=== PATIENT | male | born 1970 | race American Indian/Alaskan Native ===

== ENCOUNTER 2019-08-05 20:43 | Emergency (ER) | payer BC ==
[2019-08-05 21:26] LABS: Basophils % (Auto) 0.8 % (0.0-1.8); Eosinophils # (Auto) 0.2 K/mm3 (0.0-0.4); Eosinophils % (Auto) 3.9 % (0.0-4.3); Hematocrit 43.4 % (35.5-45.6); Hemoglobin 14.6 gm/dl (11.8-15.2); Lymphocytes # (Auto) 2.8 K/mm3 (1.2-5.4); Lymphocytes % (Auto) 45.2 % (13.4-35.0); Mean Corpuscular HGB Conc 34 % (32-34); Mean Corpuscular Volume 90 fl (84-94); Monocytes # (Auto) 0.6 K/mm3 (0.0-0.8); Platelet Count 203 K/mm3 (140-440); Red Blood Count 4.85 M/mm3 (3.65-5.03); Red Cell Distribution Width 13.9 % (13.2-15.2)
[2019-08-05 21:45] LABS: BUN/Creatinine Ratio 12; Blood Urea Nitrogen 14 mg/dL (9-20); Calcium 9.3 mg/dL (8.4-10.2); Hemolysis Index 9
[2019-08-05 23:43] VITALS: BP 161/92
== END 2019-08-05 23:51 | disposition home or self-care (01) ==
LOC: ED 20:43
DX: R22.41 Localized swelling, mass and lump, right lower limb (principal); I10 Essential (primary) hypertension
CPT/HCPCS: 36415; 80048; 85025

== ENCOUNTER 2019-12-05 17:58 | Emergency (ER) | payer BC ==
[2019-12-05 18:27] VITALS: BP 163/88
[2019-12-05] MEDS ORDERED: ASPIRIN 325 MG TAB PO ONE (23:56)
--- NOTE | 2019-12-06 00:15 | Emergency Department Report ---
ED Chest Pain HPI - General Chief Complaint: Chest Pain Stated Complaint: CHEST PRESSURE Source: patient Mode of arrival: Ambulatory Limitations: No Limitations - History of Present Illness Initial Comments: Patient is a 49-year-old -[place] male with history of hypertension who presents to the ED with complaint of acute onset persistent intermittent left- sided chest pressure and discomfort intermittently for the last 12 hours. Patient states that the discomfort comes in terms of pressure and tightness and lasts about 15 seconds. Patient states that he had similar symptoms over 1 year ago and was extensively worked up including echocardiogram which was basically unremarkable with greater than 55% to 60% ejection fraction. Patient states that he came to the ED for evaluation when this symptoms got persistent. Patient denies shortness of breath, fever, chills, cough, dizziness, syncope, headache, diaphoresis, palpitation, numbness and tingling or weakness of upper extremities bilaterally, neck pain, jaw pain, abdominal pain, nausea and vomiting, traumatic injury or heavy lifting. MD Complaint: chest pain -: Sudden, hour(s) (12) Onset: awoke with symptoms Pain Location: substernal, left chest Pain Radiation: none Severity: mild Severity scale (0 -10): 3 Quality: tightness, pressure Improves With: nothing Worsens With: nothing re: denies: nausea, vomting, diaphoresis, dyspnea, sense of impending doom, other Other Symptoms: denies: cough, fever, syncope, rash, acid taste in mouth, leg swelling, palpitations, burping Treatments Prior to Arrival: none - Related Data On Oral Contraceptives: No Allergies Allergy/AdvReac Type Severity Reaction Status Date / Time No Known Allergies Allergy Unverified 08/05/19 21:11 Heart Score - HEART Score History: Slightly suspicious EKG: Normal Age: 45-65 Risk factors: 1-2 risk factors Troponin: < normal limit HEART Score: 2 - Critical Actions Critical Actions: 0-3 pts:0.9-1.7%risk of adverse cardiac event.Candidate for discharge ED Review of Systems ROS: Stated complaint: CHEST PRESSURE Other details as noted in HPI Constitutional: denies: chills, fever Eyes: denies: eye pain, eye discharge, vision change ENT: denies: ear pain, throat pain Respiratory: denies: cough, shortness of breath, SOB with exertion, SOB at rest, wheezing Cardiovascular: chest pain (Substernal left-sided chest pain and pressure). d enies: palpitations, dyspnea on exertion, orthopnea, syncope, paroxysmal nocturnal dyspnea Endocrine: no symptoms reported Gastrointestinal: denies: abdominal pain, nausea, vomiting, diarrhea Genitourinary: denies: urgency, dysuria Musculoskeletal: denies: back pain, joint swelling, arthralgia Skin: denies: rash, lesions Neurological: denies: headache, weakness, paresthesias Psychiatric: denies: anxiety, depression Hematological/Lymphatic: denies: easy bleeding, easy bruising ED Past Medical Hx - Past Medical History Previous Medical History?: Yes Hx Hypertension: Yes - Surgical History Past Surgical History?: No - Social History Smoking Status: Never Smoker Substance Use Type: None ED Physical Exam - General Limitations: No Limitations General appearance: alert, in no apparent distress - Head Head exam: Present: atraumatic, normocephalic, normal inspection - Eye Eye exam: Present: normal appearance, PERRL, EOMI Pupils: Present: normal accommodation - ENT ENT exam: Present: normal exam, normal orophraynx, mucous membranes moist, TM's normal bilaterally, normal external ear exam - Neck Neck exam: Present: normal inspection, full ROM - Respiratory Respiratory exam: Present: normal lung sounds bilaterally. Absent: respiratory distress, wheezes, rales, rhonchi, stridor, chest wall tenderness, accessory muscle use, decreased breath sounds - Cardiovascular Cardiovascular Exam: Present: regular rate, normal rhythm, normal heart sounds. Absent: systolic murmur, diastolic murmur, rubs, gallop - GI/Abdominal GI/Abdominal exam: Present: soft, normal bowel sounds. Absent: tenderness, guarding, rebound, hyperactive bowel sounds, hypoactive bowel sounds, organomegaly - Extremities Exam Extremities exam: Present: normal inspection, full ROM, normal capillary refill - Back Exam Back exam: Present: normal inspection, full ROM. Absent: tenderness, CVA tenderness (R), CVA tenderness (L), muscle spasm, paraspinal tenderness - Neurological Exam Neurological exam: Present: alert, oriented X3, CN II-XII intact, normal gait, reflexes normal - Psychiatric Psychiatric exam: Present: normal affect, normal mood - Skin Skin exam: Present: warm, dry, intact, normal color. Absent: rash ED Course Vital Signs 12/05/19 18:25 Temperature 99.0 F Pulse Rate 73 Respiratory 18 Rate Blood Pressure 163/88 [Right] O2 Sat by Pulse 100 Oximetry NACHO score - Nacho Score Age > 65: (0) No Aspirin use within the Past 7 Days: (0) No 3 or more CAD Risk Factors: (0) No 2 or more Angina events in past 24 hrs: (0) No Known CAD with more than 50% Stenosis: (0) No Elevated Cardiac Markers: (0) No ST Deviation Greater than 0.5mm: (0) No NACHO Score: 0 ED Medical Decision Making - Lab Data Result diagrams: 12/06/19 00:32 12/06/19 00:32 - EKG Data EKG shows normal: sinus rhythm Rate: normal - EKG Data When compared to previous EKG there are: no significant change Interpretation: normal EKG 12/06/19 03:44 The initial EKG shows normal sinus rhythm with a ventricular rate of 78 bpm and with LVH and ST elevation probably normal due to early repolarization pattern. - Radiology Data Radiology results: report reviewed, image reviewed Findings [address] [address] XRay Report Signed Patient: GURJIT FERRIS MR#: [id number] : 1970 Acct:[id number] Age/Sex: 49 / M ADM Date: 12/05/19 Loc: ED Attending Dr: Ordering Physician: TEODORA BRADFORD Date of Service: 12/05/19 Procedure(s): XR chest 1V ap Accession Number(s): [id number] cc: TEODORA BRADFORD Fluoro Time In Minutes: CHEST 1 VIEW INDICATION: Chest pain COMPARISON: None FINDINGS: Support devices: None Heart: Normal Lungs/Pleura: No acute pulmonary or pleural findings. Ill-defined opacity in the right lung is thought to be due to overlying soft tissues. IMPRESSION: 1. No convincing evidence of acute disease. Signer Name: Mor Null MD Signed: 12/06/2019 12:46 AM Workstation Name: [id number] Transcribed By: TM Dictated By: Mor Null MD Electronically Authenticated By: Mor Null MD Signed Date/Time: 12/06/1945 DD/ TD/TT: - Medical Decision Making This is a 49-year-old -[place] male with history of hypertension who presents to the ED with complaint of acute onset persistent intermittent left-si ded chest pressure and discomfort intermittently for the last 12 hours. Patient states that the discomfort comes in terms of pressure and tightness and lasts about 15 seconds. Patient states that he had similar symptoms over 1 year ago and was extensively worked up including echocardiogram which was basically unremarkable with greater than 55% to 60% ejection fraction. Patient states that he came to the ED for evaluation when this symptoms got persistent. In the ED, patient is alert and oriented x3 and is not in distress. The initial EKG shows normal sinus rhythm with a ventricular rate of 78 bpm and with LVH and ST elevation probably normal due to early repolarization pattern. The repeat EKG with a second troponin level showed ventricular rate of 60 bpm and probable LVH. Patient was treated in the ED with aspirin 325 mg p.o. x1. The lab test results were reviewed and are all nonactionable including initial and repeat troponin levels. Chest x-ray shows no acute cardiopulmonary abnormalities or pneumonitis. Patient had a normal echocardiogram about a year ago after being worked up thoroughly at another hospital, and has not had any similar symptoms. Patient is currently on antihypertensive medications including lisinopril HCTZ combination and a beta-palma. The patient's heart score is 2 and patient is PERC negative per Wells criteria. Patient was discharged home and given a referral to senior financial reporting analyst on-call Dr. Shi for further evaluation and possible cardiac stress test in outpatient. Patient was advised to contact us Dr. Shi's office first thing in the morning on December 06, 2019 to schedule a follow-up appointment with Dr. Tyson. Patient was advised to return to the ED immediately if symptoms get worse. Patient was otherwise advised to follow-up also with his primary care physician in 5 to 7 days for reevaluation. - Differential Diagnosis ACS; PE; Dissection; Pneumonia; Anxiety; Muscle strain; GERD; Costochondrit Critical Care Time: Yes (35 MIN) Critical care time in (mins) excluding proc time.: 35 Critical care attestation.: If time is entered above; I have spent that time in minutes in the direct care of this critically ill patient, excluding procedure time. ED Disposition Clinical Impression: Nonspecific chest pain, Chest wall discomfort Disposition: DC-01 TO HOME OR SELFCARE Is pt being admited?: No Does the pt Need Aspirin: No Condition: Stable Instructions: Chest Pain (ED), Costochondritis (ED) Additional Instructions: All lab test results are unremarkable including initial and repeat troponin levels and EKG. Therefore take aspirin daily together with your other medications, and follow-up with the senior financial reporting analyst Dr. Shi as advised. Contact Dr. Shi's office first thing this morning December 06, 2019 to schedule a follow-up appointment. Return to the ED immediately if symptoms get worse. Referrals: JESS SHI MD [Staff Physician] - [facility] PARAG GRANT MD [Staff Physician] - 3-5 Days Time of Disposition: 03:29 Print Language: SWAZI
--- NOTE | 2019-12-06 00:51 | XRay Report ---
CHEST 1 VIEW INDICATION: Chest pain COMPARISON: None FINDINGS: Support devices: None Heart: Normal Lungs/Pleura: No acute pulmonary or pleural findings. Ill-defined opacity in the right lung is thought to be due to overlying soft tissues. IMPRESSION: 1. No convincing evidence of acute disease. Signer Name: Mor Null MD Signed: 12/06/2019 12:46 AM Workstation Name: [id number]
[2019-12-06 00:54] LABS: Basophils # (Auto) 0.1 K/mm3 (0.0-0.1); Basophils % (Auto) 0.9 % (0.0-1.8); Eosinophils # (Auto) 0.2 K/mm3 (0.0-0.4); Eosinophils % (Auto) 2.6 % (0.0-4.3); Hematocrit 44.3 % (35.5-45.6); Lymphocytes % (Auto) 47.1 % (13.4-35.0); Mean Corpuscular HGB Conc 34 % (32-34); Mean Corpuscular Volume 90 fl (84-94); Monocytes # (Auto) 0.5 K/mm3 (0.0-0.8); Monocytes % (Auto) 7.4 % (0.0-7.3); Platelet Count 204 K/mm3 (140-440); Red Blood Count 4.92 M/mm3 (3.65-5.03); Red Cell Distribution Width 13.6 % (13.2-15.2)
[2019-12-06 01:13] LABS: INR 1.09 (0.87-1.13)
[2019-12-06 01:14] LABS: Partial Thromboplastin Time 28.8 Sec. (24.2-36.6)
[2019-12-06 01:20] LABS: Alanine Aminotransferase 20 units/L (7-56); Albumin 4.3 g/dL (3.9-5); BUN/Creatinine Ratio 15; Blood Urea Nitrogen 17 mg/dL (9-20); Calcium 9.6 mg/dL (8.4-10.2); Hemolysis Index 7
== END 2019-12-06 04:00 | disposition home or self-care (01) ==
LOC: ED 17:58
DX: R07.89 Other chest pain (principal); I10 Essential (primary) hypertension
CPT/HCPCS: 36415; 71045; 80053; 83880; 84484; 85025; 85610; 85730; 93005